=== PATIENT | female | born 1970 | race Caucasian/White ===

== ENCOUNTER 2016-10-09 22:48 | Observation (INO) | payer OTHER ==
[~2016-10-09] VITALS: Ht 170.2 cm; Wt 111.6 kg
[2016-10-10 00:01] LABS: BUN/CREATININE RATIO 14 (0-10)
[2016-10-10 00:23] LABS: RED BLOOD COUNT 2.09 M/UL (4.00-5.10); WHITE BLOOD COUNT 6.4 K/UL (4.5-11.0)
[2016-10-10 00:47] LABS: HEMOGLOBIN 3.7 gm/dl (12.3-15.3)
[2016-10-10 12:39] LABS: HEMOGLOBIN 7.4 gm/dl (12.3-15.3)
[2016-10-11 04:31] LABS: HEMOGLOBIN 8.4 gm/dl (12.3-15.3)
[2016-10-11 04:32] LABS: RED BLOOD COUNT 3.63 M/UL (4.00-5.10)
[2016-10-11 04:51] LABS: BUN/CREATININE RATIO 17 (0-10)
[2016-10-11] MEDS ORDERED: LOPRESSOR 25 MG25 MG PO (12:00)
[2016-10-11] MEDS ORDERED: FERROUS SULFAT325 MG PO (12:00)
[2016-10-11] MEDS ORDERED: SYNTHROID25 MCG PO (12:00)
== END 2016-10-11 14:59 | disposition home or self-care (01) ==
LOC: ER1 22:48 → CCU 10-10 01:05 → ZEROF 10-10 01:05 → CCU 10-10 01:05
PROVIDERS: Family Medicine; ADMIT Hospitalist
DX: D50.9 Iron deficiency anemia, unspecified (principal); I21.4 Non-ST elevation (NSTEMI) myocardial infarction; I47.1 Supraventricular tachycardia; K90.9 Intestinal malabsorption, unspecified; E03.9 Hypothyroidism, unspecified; E83.51 Hypocalcemia; E66.9 Obesity, unspecified; Z91.14 Patient's other noncompliance with medication regimen; Z72.3 Lack of physical exercise; Z68.38 Body mass index [BMI] 38.0-38.9, adult; Z98.890 Other specified postprocedural states; Z82.49 Family history of ischemic heart disease and other diseases of the circulatory system
CPT/HCPCS: ECHO; 36415; 36430; 71010; 80053; 80061; 81001; 82272; 82550; 82553; 82607; 82746; 83036; 83540; 83550; 83735; 83874; 83880; 84439; 84443; 84484; 85014; 85018; 85025; 85027; 85045; 85610; 85730; 86850; 86900; 86901; 86920; 93005; 93306; 99285; G0378; G0480; J2550; J7050; P9016

== ENCOUNTER 2021-07-04 07:08 | Emergency (ER) | payer OTHER ==
[~2021-07-04 07:08] MED LIST: FERROUS SULFAT325 MG PO; LOPRESSOR 25 MG25 MG PO; SYNTHROID25 MCG PO
[2021-07-04] MEDS ORDERED: IBU600 MG PO (08:57)
[2021-07-04] MEDS ORDERED: ANECREAM30 GM TP (08:57)
== END 2021-07-04 09:17 | disposition home or self-care (01) ==
LOC: ER1 07:08
DX: M79.672 Pain in left foot (principal); E11.9 Type 2 diabetes mellitus without complications
CPT/HCPCS: 73630; 99283

== ENCOUNTER → 2021-07-20 | Outpatient (CLI) | payer OTHER ==
[~2021-07-20] MED LIST changes: +ANECREAM30 GM TP; +IBU600 MG PO
== END ==
LOC: EXRD 13:00 → MRI 14:00 → EXRD 14:21
DX: Z13.820 Encounter for screening for osteoporosis (principal); M84.375A Stress fracture, left foot, initial encounter for fracture; M79.672 Pain in left foot; R93.6 Abnormal findings on diagnostic imaging of limbs
CPT/HCPCS: 73718; 77080